=== PATIENT | female | born 1970 | race Caucasian/White ===

== ENCOUNTER 2023-11-08 15:44 | Inpatient (IN) | payer OTHER ==
[2023-11-08 17:11] VITALS: BMI 15.6
[2023-11-08] MEDS ORDERED: Acetaminophen 650 MG Suppository PR PRN (17:56)
[2023-11-08] MEDS: Sodium Chloride 0.9% 1,000 ML IV SCH (18:17)
[2023-11-08] MEDS: Diphenoxylate HCl/Atropine Tablet PO SCH (21:28)
[2023-11-08] MEDS: Cholestyramine/Aspartame 4 gm Packet PO SCH (21:28)
[2023-11-08] MEDS: Dicyclomine 10 MG CAP PO SCH (21:28)
[2023-11-08] MEDS: Promethazine HCl 12.5 MG in Sodium Chloride 0.9% 50 ML IVPB PRN (23:11)
[2023-11-09 04:50] LABS: #Basophils 0.06 10x3/uL (0.0-0.2); %Eosinophils 3.4 % (0.0-10.0); %Lymphocytes 39.7 % (21.0-51.0); %Monocytes 8.3 % (0.0-10.0); %Neutrophils 47.4 % (42.0-75.0); Hematocrit 31.5 % (36.0-47.0); Hemoglobin 11.5 g/dL (12.0-16.0); Mean Corpuscular HGB CONC 36.5 g/dL (32.0-36.0); Mean Corpuscular Hemoglobin 31.4 pg (27.0-31.0); Mean Corpuscular Volume 86.1 fL (78.0-98.0); Mean Platelet Volume 10.3 fL (7.4-10.4); Platelet Count 337 10x3/uL (130-400); Red Blood Cell (RBC) Count 3.66 mill/uL (4.20-5.40)
[2023-11-09 05:11] LABS: ALT (SGPT) 55 U/L (8-55); AST (SGOT) 30 U/L (5-34); Albumin 3.5 g/dL (3.5-5.0); Alkaline Phosphatase 60 U/L (40-110); Anion Gap 12 mmol/L (10-20); BUN (Urea Nitrogen) 49 mg/dL (9.8-20.1); Bilirubin, Total 0.9 mg/dL (0.2-1.2); Calc. Creatinine Clearance 31 mL/min (70-130); Calcium 8.3 mg/dL (7.8-10.44); Carbon Dioxide 13 mmol/L (22-29); Chloride 115 mmol/L (98-107); Estimated GFR 55; Globulin 2.7 g/dL (2.4-3.5); Glucose 100 mg/dL (70-105); Lipase 168 U/L (8-78); Magnesium 1.5 mg/dL (1.6-2.6); Potassium 3.5 mmol/L (3.5-5.1); Protein, Total 6.2 g/dL (6.0-8.3); Sodium 136 mmol/L (136-145)
[2023-11-09] MEDS: Metamucil PACK PO SCH (06:57)
[2023-11-09] MEDS: Pancrelipase DR 12,000 1 CAP PO SCH (06:59)
[2023-11-09] MEDS: Potassium Bicarbonate/Cit Ac 20 MEQ TAB PO SCH (08:11)
[2023-11-09] MEDS: Magnesium Sulfate In Water 4 GM in Premix 1 BAG IVPB SCH (08:15)
[2023-11-09 11:58] VITALS: BMI 15.6
[2023-11-09] MEDS: Pantoprazole 40 MG VIAL IVP SCH (14:41)
[2023-11-09 16:23] LABS: Reference Lab Name LABCORP
[2023-11-09] MEDS: Acetaminophen 325 MG TAB PO PRN (21:15)
[2023-11-09] MEDS: Colestipol 1 GM TAB PO SCH (23:03)
[2023-11-10 05:26] LABS: #Basophils 0.06 10x3/uL (0.0-0.2); %Eosinophils 5.6 % (0.0-10.0); %Lymphocytes 53.7 % (21.0-51.0); %Monocytes 8.4 % (0.0-10.0); %Neutrophils 31.1 % (42.0-75.0); Hematocrit 24.8 % (36.0-47.0); Hemoglobin 9.1 g/dL (12.0-16.0); Mean Corpuscular HGB CONC 36.7 g/dL (32.0-36.0); Mean Corpuscular Hemoglobin 31.6 pg (27.0-31.0); Mean Corpuscular Volume 86.1 fL (78.0-98.0); Mean Platelet Volume 10.6 fL (7.4-10.4); Platelet Count 271 10x3/uL (130-400); RBC Distribution Width 12.4 % (11.5-14.5); Red Blood Cell (RBC) Count 2.88 mill/uL (4.20-5.40)
[2023-11-10 05:39] LABS: Anion Gap 9 mmol/L (10-20); BUN (Urea Nitrogen) 23 mg/dL (9.8-20.1); Calc. Creatinine Clearance 51 mL/min (70-130); Calcium 7.7 mg/dL (7.8-10.44); Carbon Dioxide 15 mmol/L (22-29); Chloride 119 mmol/L (98-107); Estimated GFR 99; Glucose 91 mg/dL (70-105); Potassium 3.6 mmol/L (3.5-5.1); Sodium 139 mmol/L (136-145)
[2023-11-10 05:40] LABS: Magnesium 1.9 mg/dL (1.6-2.6); Phosphorus 2.5 mg/dL (2.3-4.7)
[2023-11-10 05:50] LABS: Vitamin D, 25 Hydroxy 21.5 ng/ml (> 30.0)
[2023-11-10] MEDS ORDERED: PROPOFOL 40 ML ONE (09:19)
[2023-11-10] MEDS ORDERED: Lidocaine 1% PF 5 ML VIAL ONE (09:19)
[2023-11-10] MEDS ORDERED: PHENYLEPHRINE-NS 100 MCG/ML 10 ML SYRINGE ONE (09:43)
[2023-11-10] MEDS: Fluticasone Propionate Nasal Spray 16 gm Bottle NASAL SCH (10:02)
[2023-11-10] MEDS ORDERED: Cyanocobalamin 1000 MCG/ML VIAL IM SCH (21:00)
[2023-11-11] MEDS ORDERED: Loratadine 10 MG TAB PO PRN (03:30)
[2023-11-11] MEDS: guaiFENesin ER 600 MG TAB PO SCH (04:15)
[2023-11-11] MEDS: Fluticasone Propionate Nasal Spray 16 gm Bottle NASAL PRN (04:15)
[2023-11-11 05:15] LABS: #Basophils 0.08 10x3/uL (0.0-0.2); %Basophils 1.2 % (0.0-1.0); %Eosinophils 4.8 % (0.0-10.0); %Lymphocytes 35.3 % (21.0-51.0); %Monocytes 6.2 % (0.0-10.0); %Neutrophils 52.2 % (42.0-75.0); Hematocrit 26.7 % (36.0-47.0); Mean Corpuscular HGB CONC 37.5 g/dL (32.0-36.0); Mean Corpuscular Hemoglobin 31.2 pg (27.0-31.0); Mean Corpuscular Volume 83.2 fL (78.0-98.0); Mean Platelet Volume 10.7 fL (7.4-10.4); Platelet Count 298 10x3/uL (130-400); RBC Distribution Width 12.4 % (11.5-14.5); Red Blood Cell (RBC) Count 3.21 mill/uL (4.20-5.40)
[2023-11-11 05:22] LABS: Anion Gap 10 mmol/L (10-20); BUN (Urea Nitrogen) 13 mg/dL (9.8-20.1); Calc. Creatinine Clearance 54 mL/min (70-130); Calcium 7.8 mg/dL (7.8-10.44); Carbon Dioxide 18 mmol/L (22-29); Chloride 116 mmol/L (98-107); Estimated GFR 103; Glucose 92 mg/dL (70-105); Iron 60 ug/dL (50-170); Iron Binding Capacity, Total 278 mcg/dL (265-497); Sodium 141 mmol/L (136-145)
[2023-11-11] MEDS: Opium Tincture 10% (1ml Charge) PO PRN (14:24)
[2023-11-11] MEDS: Potassium Chloride 20 MEQ TAB PO SCH (15:51)
[2023-11-11] MEDS: Opium Tincture 10% (1ml Charge) PO SCH (21:17)
[2023-11-11] MEDS: Melatonin 3 MG TAB PO PRN (21:32)
[2023-11-12 05:00] LABS: #Basophils 0.07 10x3/uL (0.0-0.2); %Lymphocytes 38.7 % (21.0-51.0); %Monocytes 7.9 % (0.0-10.0); %Neutrophils 47.1 % (42.0-75.0); Hemoglobin 9.6 g/dL (12.0-16.0); Mean Corpuscular HGB CONC 36.9 g/dL (32.0-36.0); Mean Corpuscular Hemoglobin 31.4 pg (27.0-31.0); Mean Platelet Volume 10.6 fL (7.4-10.4); Platelet Count 295 10x3/uL (130-400); RBC Distribution Width 12.6 % (11.5-14.5); Red Blood Cell (RBC) Count 3.06 mill/uL (4.20-5.40)
[2023-11-12 05:17] LABS: Anion Gap 12 mmol/L (10-20); BUN (Urea Nitrogen) 12 mg/dL (9.8-20.1); Calc. Creatinine Clearance 50 mL/min (70-130); Calcium 8.1 mg/dL (7.8-10.44); Carbon Dioxide 18 mmol/L (22-29); Chloride 114 mmol/L (98-107); Estimated GFR 97; Glucose 95 mg/dL (70-105); Potassium 3.6 mmol/L (3.5-5.1); Sodium 140 mmol/L (136-145)
[2023-11-13] MEDS: Sodium Chloride 0.9% 1,000 ML IV SCH (12:09)
[2023-11-14 06:03] LABS: Anion Gap 13 mmol/L (10-20); BUN (Urea Nitrogen) 15 mg/dL (9.8-20.1); Calc. Creatinine Clearance 53 mL/min (70-130); Calcium 7.9 mg/dL (7.8-10.44); Carbon Dioxide 19 mmol/L (22-29); Chloride 114 mmol/L (98-107); Estimated GFR 102; Glucose 91 mg/dL (70-105); Potassium 3.7 mmol/L (3.5-5.1); Sodium 142 mmol/L (136-145)
[2023-11-14 06:06] LABS: #Basophils 0.07 10x3/uL (0.0-0.2); %Eosinophils 5.2 % (0.0-10.0); %Lymphocytes 45.2 % (21.0-51.0); %Monocytes 7.1 % (0.0-10.0); %Neutrophils 41.2 % (42.0-75.0); Hematocrit 25.9 % (36.0-47.0); Hemoglobin 9.5 g/dL (12.0-16.0); Mean Corpuscular HGB CONC 36.7 g/dL (32.0-36.0); Mean Corpuscular Hemoglobin 31.4 pg (27.0-31.0); Mean Corpuscular Volume 85.5 fL (78.0-98.0); Mean Platelet Volume 10.7 fL (7.4-10.4); Platelet Count 297 10x3/uL (130-400); RBC Distribution Width 13.2 % (11.5-14.5); Red Blood Cell (RBC) Count 3.03 mill/uL (4.20-5.40)
[2023-11-14] MEDS: Pancrelipase DR 12,000 1 CAP PO SCH (17:01)
[2023-11-15 06:59] LABS: #Basophils 0.09 10x3/uL (0.0-0.2); %Basophils 1.2 % (0.0-1.0); %Lymphocytes 38.7 % (21.0-51.0); %Monocytes 6.8 % (0.0-10.0); %Neutrophils 47.9 % (42.0-75.0); Hematocrit 28.6 % (36.0-47.0); Hemoglobin 10.7 g/dL (12.0-16.0); Mean Corpuscular HGB CONC 37.4 g/dL (32.0-36.0); Mean Corpuscular Hemoglobin 31.2 pg (27.0-31.0); Mean Corpuscular Volume 83.4 fL (78.0-98.0); Mean Platelet Volume 10.1 fL (7.4-10.4); Platelet Count 327 10x3/uL (130-400); RBC Distribution Width 13.1 % (11.5-14.5); Red Blood Cell (RBC) Count 3.43 mill/uL (4.20-5.40)
[2023-11-15 07:28] LABS: Anion Gap 13 mmol/L (10-20); BUN (Urea Nitrogen) 22 mg/dL (9.8-20.1); Calc. Creatinine Clearance 44 mL/min (70-130); Calcium 8.6 mg/dL (7.8-10.44); Carbon Dioxide 20 mmol/L (22-29); Chloride 111 mmol/L (98-107); Estimated GFR 83; Glucose 90 mg/dL (70-105); Sodium 140 mmol/L (136-145)
[2023-11-15 13:30] VITALS: BP 132/70; TEMP 98.8
[2023-11-16 15:18] LABS: Fatty Acid Droplets Increased (.); Neutral Fats And/Or Soaps Increased (.)
== END 2023-11-15 12:41 | disposition home or self-care (01) | DRG 394 ==
LOC: MSONC 16:13 → INTOOBSV 16:13 → MSONC 16:35 → OBSVTOIN 11-09 16:30
PROVIDERS: ADMIT Internal Medicine; ATTEND Internal Medicine
PROC: 0DJD8ZZ Inspection of Lower Intestinal Tract, Via Natural or Artificial Opening Endoscopic (ICD-10-PCS; principal; 2023-11-10)
DX: Z43.2 Encounter for attention to ileostomy (principal); E87.1 Hypo-osmolality and hyponatremia; N17.9 Acute kidney failure, unspecified; E87.20 Acidosis, unspecified; K51.90 Ulcerative colitis, unspecified, without complications; I95.9 Hypotension, unspecified; Z79.899 Other long term (current) drug therapy; E86.0 Dehydration
CPT/HCPCS: 36415; 80048; 80053; 82306; 82607; 82705; 82728; 83540; 83550; 83630; 83690; 83735; 84100; 84134; 85025; 87324; 87449; 96374; 96375; G0378; J2470; J2550; J2704; J3475; J7030